=== PATIENT | female | born 1970 | race Hispanic/Latino ===

== ENCOUNTER 2018-10-12 10:03 | Inpatient (IN) | payer BC ==
[~2018-10-12] VITALS: Ht 147.3 cm; Wt 99.8 kg
[2018-10-12] MEDS ORDERED: MORPHINE SULFATE INJ 4 MG/ML INJ 1ML IV STA (10:32)
[2018-10-12] MEDS ORDERED: ONDANSETRON HCL INJ 2MG/ML 2ML 2 MG/ML VIAL IV STA (10:32)
[2018-10-12] MEDS ORDERED: SODIUM CHLORIDE 0.9% 1000ML 1,000 ML IV STA (10:32)
[2018-10-12] MEDS ORDERED: DIATRIZOATE MEGL/DIATRIZOA SOD 30 ML BTL PO ONE (10:46)
[2018-10-12 11:44] LABS: BASOPHILS # (AUTO) 0.1 (0.0-0.1); BASOPHILS % 0.3 % (0.0-1.0); EOSINOPHILS # (AUTO) 0.1 (0.0-0.4); EOSINOPHILS % 0.8 % (0.0-6.0); HEMATOCRIT 39.5 % (34.2-44.1); HEMOGLOBIN 13.6 g/dL (12.0-16.0); LYMPHOCYTES # (AUTO) 3.3 (1.0-3.2); LYMPHOCYTES % 22.4 % (18.0-39.1); MEAN CORPUSCULAR HEMOGLOBIN 29.2 pg (28-32); MEAN CORPUSCULAR HGB CONC 34.4 g/dL (31-35); MEAN CORPUSCULAR VOLUME 84.8 fL (81-99); MONOCYTES # (AUTO) 1.1 (0.2-0.8); MONOCYTES % 7.3 % (4.4-11.3); NEUTROPHILS % 68.7 % (38.7-80.0); PLATELET COUNT 334 x10e3/uL (140-360); RED BLOOD COUNT 4.66 x10e6/uL (3.6-5.1); RED CELL DISTRIBUTION WIDTH 12.5 % (11.7-14.4)
[2018-10-12 11:50] LABS: CLARITY,URINE CLEAR (CLEAR); COLOR,URINE YELLOW (YELLOW); LEUKOCYTE ESTERASE ,URINE 1+ (NEGATIVE)
[2018-10-12 11:51] LABS: BILIRUBIN,URINE 1+ (NEGATIVE); KETONES,URINE 1+ (NEGATIVE); NITRITE,URINE NEGATIVE (NEGATIVE); PROTEIN,URINE DIPSTICK 1+ (NEGATIVE); URINE UROBILINOGEN 0.2 mg/dL (0.2 - 1)
[2018-10-12 12:02] LABS: WBC,URINE (MAN) >50 /HPF (0-5)
[2018-10-12 12:03] LABS: BACTERIA,URINE MANY /HPF; EPITHELIAL CELLS,URINE MANY /LPF
[2018-10-12 12:05] LABS: ALANINE AMINOTRANSFERASE 12 IU/L (0-55); ALBUMIN 3.1 g/dL (3.5-5.0); ALBUMIN/GLOBULIN RATIO 0.7 (0.8-2.0); ALKALINE PHOSPHATASE 111 IU/L (40-150); AMYLASE 26 U/L (25-125); ANION GAP 14.6 mmol/L (8-16); BLOOD UREA NITROGEN 10 mg/dL (7-26); BUN/CREATININE RATIO 13 (6-25); CALCIUM 9.7 mg/dL (8.4-10.2); CARBON DIOXIDE 25 mmol/L (22-29); CHLORIDE 98 mmol/L (98-107); CREATININE, SERUM 0.77 mg/dL (0.57-1.11); EST GLOMERULAR FILTRATION RATE > 60 ML/MIN (60-); GLUCOSE 241 mg/dL (74-118); LIPASE 14 U/L (8-78); POTASSIUM 3.6 mmol/L (3.5-5.1); SODIUM 134 mmol/L (136-145)
[2018-10-12] MEDS ORDERED: IOPAMIDOL 370 MG/ML 200 ML INFUS..BTL INJ ONE (13:17)
[2018-10-12] MEDS ORDERED: SODIUM CHLORIDE 0.9% 50ML 50 ML ONE (13:17)
--- NOTE | 2018-10-12 13:57 | Diagnostic Imaging Report ---
EXAMINATION: CT of the abdomen and pelvis with contrast. TECHNIQUE: Helical CT images of the abdomen and pelvis were performed from the lung bases to the lesser trochanters after the intravenous administration of 100 cc of Isovue 300 and the oral administration of gastro. Coronal and sagittal reformatted images were obtained.Dose modulation, iterative reconstruction, and/or weight based adjustment of the mA/kV was utilized to reduce the radiation dose to as low as reasonably achievable. COMPARISON: None. CLINICAL HISTORY:Abdominal pain DISCUSSION: ABDOMEN/PELVIS: LOWER THORAX:Unremarkable. HEPATOBILIARY: No focal hepatic lesions. No intra-or extrahepatic biliary ductal dilation. The gallbladder is normal. SPLEEN: No splenomegaly. PANCREAS: No focal masses or ductal dilatation. ADRENALS: 1.6 cm left adrenal nodule. KIDNEYS/URETERS: 6 mm left renal calculus. PELVIC ORGANS/BLADDER: The bladder is normal. PERITONEUM/RETROPERITONEUM: No free air or fluid. LYMPH NODES: No intra-abdominal, retroperitoneal, pelvic or inguinal lymphadenopathy. VESSELS: The celiac trunk,superior and inferior mesenteric and bilateral renal arteries are patent The portal, superior mesenteric and splenic veins are patent. GI TRACT: No distention or wall thickening. Fat-containing inflammatory process in the left lower quadrant adjacent to the sigmoid colon and left adnexa axial image 65. No significant diverticulosis. BONES AND SOFT TISSUE: No bony destructive lesions. No soft tissue abnormalities. IMPRESSION: Left lower quadrant inflammatory change adjacent to the sigmoid colon likely epiploic appendagitis. Diverticulitis less likely given lack of surrounding colonic diverticula. No abscess. 6 mm left renal calculus. Signed by: Dr. Mark Jacome M.D. on 10/12/2018 1:54 PM
[2018-10-12] MEDS ORDERED: PANTOPRAZOLE 40 MG 10ML VIAL IV STA (14:27)
[2018-10-12] MEDS ORDERED: PIPER-TAZ 3.375 GM / NS 50ML IV SCH (14:30)
[2018-10-12] MEDS: PIPER-TAZ 3.375 GM 50 ML IV SCH ×2 (15:30→21:12)
[2018-10-12] MEDS: SODIUM CHLORIDE 0.9% 1000ML 1,000 ML IV SCH ×2 (15:30→23:50)
[2018-10-12] MEDS: MORPHINE SULFATE INJ 4 MG/ML INJ 1ML IV PRN ×2 (15:30→21:11)
--- OUTSIDE RECORDS SUMMARY | 2018-10-12 15:34 | XMS REPORT ---
Author [facility] Address Unknown Phone Unavailable Care Team Providers Care Injection Molding Supervisor Name Role Phone Mario KENNY Unavailable Unavailable Problems This patient has no known problems. Allergies, Adverse Reactions, Alerts This patient has no known allergies or adverse reactions. Medications This patient has no known medications. Results Test Description Test Time Test Comments Text Results Atomic Results Result Comments CT ABDOMEN/PELVIS W 2018-10-12 13:48:00 [facility] [address] [address] Patient Name: SP MEI MR #: [id number] : 1970 Age/Sex: 48/F Req #: [id number] Adm Physician: Ordered by: SHERLEY CACERES ELECTRONIC COMMUNICATIONS TECHNICIAN Report #: [id number] Location: ER Room/Bed: Procedure: [id number] CT/CT ABDOMEN/PELVIS W Exam Date: 10/12/18 Exam Time: 1238 REPORT STATUS: Signed EXAMINATION: CT of the abdomen and pelvis with cont rast. TECHNIQUE: Helical CT images of the abdomen and pelvis were performed from the lung bases to the lesser trochanters after the intravenous administration of 100 cc of Isovue 300 and the oral administration of gastro. Coronal and sagittal reformatted images were obtained.Dose modulation, iterative reconstruction, and/or weight based adjustment of the mA/kV was utilized to reduce the radiation dose to as low as reasonably achievable. COMPARISON: None. CLINICAL HISTORY:Abdominal pain DISCUSSION: ABDOMEN/PELVIS: LOWER THORAX:Unremarkable. HEPATOBILIARY: No focal hepatic lesions. No intra-or extrahepatic biliary ductal dilation. The gallbladder is normal. SPLEEN: No splenomegaly. PANCREAS: No focal masses or ductal dilatation. ADRENALS: 1.6 cm left adrenal nodule. KIDNEYS/URETERS: 6 mm left renal calculus. PELVIC ORGANS/BLADDER: The bladder is normal. PERITONEUM/RETROPERITONEUM: No free air or fluid. LYMPH NODES: No intra-abdominal, retroperitoneal, pelvic or inguinal lymphadenopathy. VESSELS: The celiac trunk,superior and inferior mesenteric and bilateral renal arteries are patent The portal, superior mesenteric and splenic veins are patent. GI TRACT: No distention or wall thickening. Fat-containing inflammatory process in the left lower quadrant adjacent to the sigmoid colon and left adnexa axial image 65. No significant diverticulosis. BONES AND SOFT TISSUE: No bony destructive lesions. No soft tissue abnormalities. IMPRESSION: Left lower quadrant inflammatory change adjacent to the sigmoid colon likely epiploic appendagitis. Diverticulitis less likely given lack of surrounding colonic diverticula. No abscess. 6 mm left renal calculus. Signed by: Dr. Rhina Ruvalcaba M.D. on 10/12/2018 1:54 PM Dictated By: RHINA RUVALCABA MD [id number] Transcribed By: ALONSO on 10/12/18 1352 COPY TO: SHERLEY CACERES NP
[2018-10-12] MEDS: METRONIDAZOLE 500MG/NS 100ML IV SCH ×4 (16:31→23:49)
[2018-10-12 17:15] VITALS: BP 128/59
--- NOTE | 2018-10-12 17:25 | NUR ---
PT REC'D FROM ED VIA WHEELCHAIR ON RA. PT C/O LEFT LOWER ABDOMINAL PAIN. NO S/S OF DISTRESS AND FLUIDS RUNNING AT 100 ML/HR. BED IN LOWEST POSITION, SIDE RAILS UP X2, AND CALL SANTIAGO WITHIN REACH.
[2018-10-12 17:34] VITALS: BP 128/59
[2018-10-12 17:46] VITALS: BP 128/59
[2018-10-12] MEDS ORDERED: PIPER-TAZ 3.375 GM 50 ML IV SCH (18:00)
--- NOTE | 2018-10-12 18:15 | NUR ---
NOTIFIED DR. CATES ABOUT PT PAIN AND LOW-GRADE FEVER OF 99.9 F. ORDERED TYLENOL FOR PAIN AND LOW-GRADE FEVER. ORDERS CARRIED OUT.
[2018-10-12] MEDS ORDERED: ACETAMINOPHEN 325 MG TAB PO PRN (18:30)
[2018-10-12] MEDS: ACETAMINOPHEN 325 MG TAB PO PRN (19:08)
[2018-10-12 20:00] VITALS: BP 96/50
[2018-10-12] MEDS: ONDANSETRON HCL INJ 2MG/ML 2ML 2 MG/ML VIAL IV PRN (21:12)
[2018-10-13] VITALS (7 sets, daily range): BP systolic 94–143; BP diastolic 50–65
[2018-10-13] MEDS: PIPER-TAZ 3.375 GM 50 ML IV SCH ×4 (03:42→21:10)
[2018-10-13] MEDS: MORPHINE SULFATE INJ 4 MG/ML INJ 1ML IV PRN ×2 (04:03→15:56)
[2018-10-13] MEDS: ACETAMINOPHEN 325 MG TAB PO PRN ×2 (04:03→17:19)
[2018-10-13] MEDS: SODIUM CHLORIDE 0.9% 1000ML 1,000 ML IV SCH ×2 (05:22→21:10)
[2018-10-13] MEDS: METRONIDAZOLE 500MG/NS 100ML IV SCH ×4 (05:22→23:29)
[2018-10-13 06:10] LABS: BASOPHILS % 0.3 % (0.0-1.0); EOSINOPHILS # (AUTO) 0.1 (0.0-0.4); EOSINOPHILS % 0.7 % (0.0-6.0); HEMATOCRIT 37.5 % (34.2-44.1); HEMOGLOBIN 12.4 g/dL (12.0-16.0); LYMPHOCYTES # (AUTO) 1.9 (1.0-3.2); LYMPHOCYTES % 13.3 % (18.0-39.1); MEAN CORPUSCULAR HGB CONC 33.1 g/dL (31-35); MEAN CORPUSCULAR VOLUME 87.6 fL (81-99); MONOCYTES # (AUTO) 1.1 (0.2-0.8); MONOCYTES % 7.5 % (4.4-11.3); NEUTROPHILS % 77.7 % (38.7-80.0); PLATELET COUNT 312 x10e3/uL (140-360); RED BLOOD COUNT 4.28 x10e6/uL (3.6-5.1); RED CELL DISTRIBUTION WIDTH 12.6 % (11.7-14.4)
[2018-10-13 06:26] LABS: ALANINE AMINOTRANSFERASE 10 IU/L (0-55); ALBUMIN 2.5 g/dL (3.5-5.0); ALBUMIN/GLOBULIN RATIO 0.6 (0.8-2.0); ALKALINE PHOSPHATASE 93 IU/L (40-150); ANION GAP 14.6 mmol/L (8-16); BLOOD UREA NITROGEN 8 mg/dL (7-26); BUN/CREATININE RATIO 12 (6-25); CALCIUM 8.8 mg/dL (8.4-10.2); CARBON DIOXIDE 20 mmol/L (22-29); CHLORIDE 104 mmol/L (98-107); CREATININE, SERUM 0.69 mg/dL (0.57-1.11); EST GLOMERULAR FILTRATION RATE > 60 ML/MIN (60-); GLUCOSE 225 mg/dL (74-118); POTASSIUM 3.6 mmol/L (3.5-5.1); SODIUM 135 mmol/L (136-145)
--- NOTE | 2018-10-13 08:33 | NUR ---
Pt received resting in bed. Alert and oriented x4. Oriented to staff and surroundings. Encouraged to press call collado if help needed. Emotional support given. All meds given as ordered. Call collado within reach. Will monitor
--- NOTE | 2018-10-13 12:48 | NUR ---
Nutrition Screen Note RD Recommendation for Physician: Advance diet as tolerated to a GI soft diet Plan of Care: RD following, monitoring for adequacy and tolerance Nutrition reason for involvement: Nutrition Risk Trigger - MST Primary Diagnose(s): Diverticulitis, UTI Ht:58 in Wt:220lbs BMI:46 kg/m2 IBW:90lbs RD Assessment:(10/13/18) Initial encounter with patient. Pt with abdominal pain. No N,V, D. 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 Denies any difficulty chewing or swallowing. No wt changes. Current Diet: Clear liquid Malnutrition Evaluation (10/13) The patient does not meet criteria for a specified degree of malnutrition at this time. Will re-evaluate at follow-up as appropriate. Diet Education Needs Assessment: Diet education not indicated. Diet Adequacy: Meeting fluid needs, Not meeting calorie needs, Not meeting protein needs Tolerance: Tolerating PO Nutrition Care Level:[address] RD, LD, [facility]
--- NOTE | 2018-10-13 13:58 | NUR ---
SOCIAL WORK INITIAL ASSESSMENT Package Collector to bedside to discuss plan of care with patient/family. CM/SW role and care transitions discussed. Anticipated discharge plan discussed along with duration of care. CM/SW discussed patients right to make decisions in care. CM/SW work hours given. 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 Name and number was also written on the patients whiteboard. Patient verbalized understanding of discussion. CM will follow-up with ongoing discharge and transition of care needs.
--- NOTE | 2018-10-13 15:42 | NUR ---
H&P cc: abdominal pain HPI: 48yoF, PCP none, developed left lower abdominal pain, nausea. No vomiting/diarrhea; found to have acute diverticulitis and UTI. PMH: morbid obesity, asthma, PreDM PShx: csec x3; ALlergies; see emr Fh/SH; ; no etoh/cigs Meds; see MAR ROS: no f/c/s/CHRISTIANSEN/cp/sob/dizziness/vision changes/skin rash/V/D v/s: revd PE tired appearing anicteric ns1s2; 3/6 systolic murmur mod bs soft nd; left lower abdomen tender to touch; no e/t skin dry n. affect labs/meds revd A/P: 48yoF Acute diverticulitis UTI Left nephrolitiasis Morbid obesity BMI 46 Hyperglycemia Systolic murmur PLAN IV abx; IVF f/u cx hab1c/lipids Lovenox/pepcid Sal Lopez MD, PhD.
[2018-10-13] MEDS: ONDANSETRON HCL INJ 2MG/ML 2ML 2 MG/ML VIAL IV PRN (15:56)
[2018-10-13 16:03] LABS: CHOL/HDL RATIO 4.8 (3.0-3.6)
[2018-10-13] MEDS ORDERED: ACETAMINOPHEN 325 MG TAB PO PRN (17:30)
[2018-10-13] MEDS ORDERED: DEXTROSE 50% SYRINGE 50 ML IV PRN (17:30)
[2018-10-13] MEDS: INSULIN REGULAR, HUMAN 100 UNIT/1 ML 3ML VIAL SQ SCH (21:11)
[2018-10-14] VITALS (8 sets, daily range): BP systolic 102–139; BP diastolic 52–60
[2018-10-14] MEDS: PIPER-TAZ 3.375 GM 50 ML IV SCH ×4 (03:59→21:31)
[2018-10-14] MEDS: METRONIDAZOLE 500MG/NS 100ML IV SCH ×4 (06:02→23:35)
[2018-10-14 06:55] LABS: BASOPHILS % 0.2 % (0.0-1.0); EOSINOPHILS # (AUTO) 0.2 (0.0-0.4); EOSINOPHILS % 1.3 % (0.0-6.0); HEMATOCRIT 37.6 % (34.2-44.1); HEMOGLOBIN 12.7 g/dL (12.0-16.0); LYMPHOCYTES # (AUTO) 2.6 (1.0-3.2); LYMPHOCYTES % 21.1 % (18.0-39.1); MEAN CORPUSCULAR HEMOGLOBIN 28.9 pg (28-32); MEAN CORPUSCULAR HGB CONC 33.8 g/dL (31-35); MEAN CORPUSCULAR VOLUME 85.5 fL (81-99); MONOCYTES # (AUTO) 0.8 (0.2-0.8); MONOCYTES % 6.7 % (4.4-11.3); NEUTROPHILS # (AUTO) 8.5 (2.1-6.9); NEUTROPHILS % 70.2 % (38.7-80.0); PLATELET COUNT 318 x10e3/uL (140-360); RED CELL DISTRIBUTION WIDTH 12.4 % (11.7-14.4)
[2018-10-14 07:08] LABS: ANION GAP 13.3 mmol/L (8-16); BLOOD UREA NITROGEN 6 mg/dL (7-26); BUN/CREATININE RATIO 9 (6-25); CALCIUM 8.7 mg/dL (8.4-10.2); CARBON DIOXIDE 21 mmol/L (22-29); CHLORIDE 107 mmol/L (98-107); CREATININE, SERUM 0.65 mg/dL (0.57-1.11); EST GLOMERULAR FILTRATION RATE > 60 ML/MIN (60-); GLUCOSE 162 mg/dL (74-118); POTASSIUM 3.3 mmol/L (3.5-5.1); SODIUM 138 mmol/L (136-145)
--- NOTE | 2018-10-14 08:35 | NUR ---
Pt received resting in bed. Alert and oriented x4. Pt educated regarding new onset Diabetes, and given hand out regarding s/s of hypoglycemia and hyperglycemia. Pt signed a copy of teaching, and placed in chart. Emotional support given. Meds given as ordered. Will monitor
[2018-10-14] MEDS: INSULIN REGULAR, HUMAN 100 UNIT/1 ML 3ML VIAL SQ SCH ×4 (08:36→21:00)
[2018-10-14] MEDS: MORPHINE SULFATE INJ 4 MG/ML INJ 1ML IV PRN ×2 (08:36→18:03)
[2018-10-14] MEDS: SODIUM CHLORIDE 0.9% 1000ML 1,000 ML IV SCH ×2 (08:36→16:24)
[2018-10-14] MEDS: PROMETHAZINE 12.5MG/ NACL 0.9% 12.5 MG/50 ML BAG IV PRN ×2 (08:36→18:03)
--- NOTE | 2018-10-14 18:25 | NUR ---
IM- progress note O/N no events ROS: no f/c/s/CHRISTIANSEN/cp/sob/dizziness/vision changes/skin rash/V/D v/s: revd PE tired appearing anicteric ns1s2; 3/6 systolic murmur mod bs soft nd; left lower abdomen tender to touch; no e/t skin dry n. affect labs/meds revd A/P: 48yoF Acute diverticulitis UTI Left nephrolitiasis Morbid obesity BMI 46 Hyperglycemia Systolic murmur PLAN IV abx; IVF f/u cx hab1c/lipids Lovenox/pepcid needs urine culture; cont abx; replaceK; check labs in am Sal Lopez MD, PhD.
[2018-10-14] MEDS ORDERED: POTASSIUM CHLORIDE 20MEQ/100ML 100 ML IV ONE (18:30)
[2018-10-14] MEDS ORDERED: MORPHINE SULFATE INJ 4 MG/ML INJ 1ML IV PRN (19:15)
[2018-10-14] MEDS ORDERED: POTASSIUM CHLORIDE 10MEQ EA PO ONE (21:00)
[2018-10-15] VITALS (7 sets, daily range): BP systolic 112–142; BP diastolic 57–75
[2018-10-15] MEDS: SODIUM CHLORIDE 0.9% 1000ML 1,000 ML IV SCH ×3 (00:17→22:27)
[2018-10-15] MEDS: PIPER-TAZ 3.375 GM 50 ML IV SCH ×4 (03:17→22:00)
[2018-10-15] MEDS: METRONIDAZOLE 500MG/NS 100ML IV SCH ×3 (05:11→17:12)
[2018-10-15 06:47] LABS: BASOPHILS % 0.2 % (0.0-1.0); EOSINOPHILS # (AUTO) 0.1 (0.0-0.4); EOSINOPHILS % 0.9 % (0.0-6.0); HEMATOCRIT 36.4 % (34.2-44.1); HEMOGLOBIN 12.3 g/dL (12.0-16.0); LYMPHOCYTES % 23.6 % (18.0-39.1); MEAN CORPUSCULAR HEMOGLOBIN 29.1 pg (28-32); MEAN CORPUSCULAR HGB CONC 33.8 g/dL (31-35); MEAN CORPUSCULAR VOLUME 86.1 fL (81-99); MONOCYTES # (AUTO) 0.9 (0.2-0.8); MONOCYTES % 7.3 % (4.4-11.3); NEUTROPHILS # (AUTO) 8.6 (2.1-6.9); NEUTROPHILS % 67.5 % (38.7-80.0); PLATELET COUNT 356 x10e3/uL (140-360); RED BLOOD COUNT 4.23 x10e6/uL (3.6-5.1); RED CELL DISTRIBUTION WIDTH 12.6 % (11.7-14.4)
[2018-10-15 07:06] LABS: ANION GAP 14.5 mmol/L (8-16); BLOOD UREA NITROGEN 6 mg/dL (7-26); BUN/CREATININE RATIO 10 (6-25); CALCIUM 8.6 mg/dL (8.4-10.2); CARBON DIOXIDE 20 mmol/L (22-29); CHLORIDE 107 mmol/L (98-107); CREATININE, SERUM 0.62 mg/dL (0.57-1.11); EST GLOMERULAR FILTRATION RATE > 60 ML/MIN (60-); GLUCOSE 118 mg/dL (74-118); POTASSIUM 3.5 mmol/L (3.5-5.1); SODIUM 138 mmol/L (136-145)
--- NOTE | 2018-10-15 07:20 | NUR ---
PATIENT IS AWAKE, ALERT, AND IN STABLE CONDITION WITH NO S/S OF RESPIRATORY DISTRESS. NO PAIN VOICED. IV FLUIDS INFUSING. PRESENT IN ROOM. CALL LIGHT IS WITHIN REACH, PATIENT INSTRUCTED TO CALL FOR ASSISTANCE NEEDED.
[2018-10-15] MEDS: INSULIN REGULAR, HUMAN 100 UNIT/1 ML 3ML VIAL SQ SCH ×4 (07:30→21:00)
--- NOTE | 2018-10-15 10:14 | NUR ---
IM- progress note O/N no events ROS: no f/c/s/CHRISTIANSEN/cp/sob/dizziness/vision changes/skin rash/V/D v/s: revd PE tired appearing anicteric ns1s2; 3/6 systolic murmur mod bs soft nd; left lower abdomen tender to touch; no e/t skin dry n. affect labs/meds revd A/P: 48yoF Acute diverticulitis UTI Left nephrolitiasis Morbid obesity BMI 46 Hyperglycemia Systolic murmur PLAN IV abx; IVF f/u cx hab1c/lipids Lovenox/pepcid needs urine culture; cont abx; replaceK; check labs in am 10/15 advance to full liq diet; labs in am. Sal Lopez MD, PhD.
--- NOTE | 2018-10-15 16:37 | NUR ---
Nutrition Screen Note RD Recommendation for Physician: - ADAT to goal of 1800 benedicto carb control, GI Soft diet - Diet education provided 10/15 Plan of Care: RD following, monitoring for adequacy and tolerance Nutrition reason for involvement: MD consult- diet education Primary Diagnose(s): Diverticulitis, UTI Ht:58 in Wt:220lbs BMI:46 kg/m2 IBW:90lbs RD Assessment: 10/15: Pt seen today for new onset DM diet education. Pt educated on DM2 nutrition therapy emphasizing CHO sources, CHO counting, food label reading, meal planning, foods to avoid, consistent intake, and cooking tips. All questions answered at time of visit, diet education handouts provided. Pt reports tolerating CL diet currently. Labs and meds reviewed. Will monitor and continue to follow. Initial encounter with patient. Pt with abdominal pain. No N,V, D. 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 Denies any difficulty chewing or swallowing. No wt changes. Current Diet: Clear liquid Malnutrition Evaluation (10/13) The patient does not meet criteria for a specified degree of malnutrition at this time. Will re-evaluate at follow-up as appropriate. Diet Education Needs Assessment: Diet education indicated- new onset DM, pt receptive to diet education 10/15. Learner(s): pt Barriers: none Cultural/Language Modifications: none Readiness: ready Method: handouts, discussion Topics: DM2 nutrition therapy, CHO counting, label reading Understanding/Compliance: Diet Adequacy: Not meeting calorie needs, not meeting protein needs Tolerance: Tolerating PO Nutrition Care Level:Low Signed: Bárbara Tijerina RD, LD, [facility]
--- NOTE | 2018-10-15 19:29 | NUR ---
PATIENT IS IN STABLE CONDITION WITH NO S/S OF RESPIRATORY DISTRESS. NO PAIN VOICED. IV FLUIDS INFUSING. CALL LIGHT IS WITHIN REACH, PATIENT INSTRUCTED TO CALL FOR ASSISTANCE NEEDED. BEDSIDE REPORT GIVEN TO ONCOMING NURSE.
--- NOTE | 2018-10-15 19:57 | NUR ---
RECEIVED PT IN BED AOX3 RESPIRATIONS ARE EVEN AND UNLABORED DENIES ABD PAIN NOW .CALL LIGHT WITH IN REACH .CONTINUE TO MONITOR
[2018-10-16] VITALS: BP 124/58
[2018-10-16 02:34] VITALS: BP 124/58
[2018-10-16 04:00] VITALS: BP 120/63
[2018-10-16] MEDS: PIPER-TAZ 3.375 GM 50 ML IV SCH ×2 (04:00→09:03)
[2018-10-16] MEDS: METRONIDAZOLE 500MG/NS 100ML IV SCH ×3 (06:00→12:00)
--- NOTE | 2018-10-16 06:23 | NUR ---
PT RESTED DURING THE NIGHT DENIES PAIN CALL LIGHT WITH IN REACH .CONTINUE TO MONITOR
[2018-10-16 06:57] LABS: BASOPHILS % 0.3 % (0.0-1.0); EOSINOPHILS # (AUTO) 0.1 (0.0-0.4); EOSINOPHILS % 1.4 % (0.0-6.0); HEMATOCRIT 38.5 % (34.2-44.1); HEMOGLOBIN 12.7 g/dL (12.0-16.0); LYMPHOCYTES # (AUTO) 2.4 (1.0-3.2); LYMPHOCYTES % 24.5 % (18.0-39.1); MEAN CORPUSCULAR HEMOGLOBIN 28.5 pg (28-32); MEAN CORPUSCULAR VOLUME 86.5 fL (81-99); MONOCYTES # (AUTO) 0.7 (0.2-0.8); MONOCYTES % 7.2 % (4.4-11.3); NEUTROPHILS # (AUTO) 6.4 (2.1-6.9); NEUTROPHILS % 66.2 % (38.7-80.0); PLATELET COUNT 353 x10e3/uL (140-360); RED BLOOD COUNT 4.45 x10e6/uL (3.6-5.1); RED CELL DISTRIBUTION WIDTH 12.6 % (11.7-14.4)
--- NOTE | 2018-10-16 07:10 | NUR ---
PATIENT IS ALERT AND IN STABLE CONDITION WITH NO S/S OF RESPIRATORY DISTRESS. NO PAIN VOICED. IV FLUIDS INFUSING. CALL LIGHT IS WITHIN REACH, PATIENT INSTRUCTED TO CALL FOR ASSISTANCE NEEDED.
--- NOTE | 2018-10-16 07:11 | NUR ---
REPORT GIVEN TO THE ONCOMING NURSE
[2018-10-16 07:16] LABS: ANION GAP 12.3 mmol/L (8-16); CALCIUM 8.4 mg/dL (8.4-10.2); CARBON DIOXIDE 22 mmol/L (22-29); CHLORIDE 106 mmol/L (98-107); EST GLOMERULAR FILTRATION RATE > 60 ML/MIN (60-); GLUCOSE 134 mg/dL (74-118); POTASSIUM 3.3 mmol/L (3.5-5.1); SODIUM 137 mmol/L (136-145)
[2018-10-16] MEDS: INSULIN REGULAR, HUMAN 100 UNIT/1 ML 3ML VIAL SQ SCH ×2 (07:30→11:30)
[2018-10-16] MEDS ORDERED: LEVAQUIN500 MG PO (07:49)
[2018-10-16] MEDS ORDERED: ZOFRAN4 MG PO (07:49)
[2018-10-16] MEDS ORDERED: FLAGYL500 MG PO (07:49)
[2018-10-16 08:00] VITALS: BP 142/67
[2018-10-16] MEDS ORDERED: POTASSIUM CHLORIDE 20 MEQ TAB CR PO NR (08:15)
[2018-10-16 08:24] LABS: BLOOD UREA NITROGEN 5 mg/dL (7-26); BUN/CREATININE RATIO 8 (6-25)
[2018-10-16] MEDS ORDERED: ONDANSETRON HCL 4 MG ORAL DISINTEGRATING TAB PO PRN (09:15)
[2018-10-16 11:45] VITALS: BP 143/72
--- NOTE | 2018-10-16 14:31 | NUR ---
PATIENT DISCHARGE HOME- PATIENT OFF THE UNIT AT 1410 PER WHEELCHAIR ACCOMPANIED BY STAFF MEMBER TO THE FRONT LOBBY. PATIENT IN STABLE CONDITION WITH NO S/S OF RESPIRATORY DISTRESS. NO PAIN VOICED. IV REMOVED WITH TIP INTACT AT 1220. DISCHARGE TEACHING, INSTRUCTIONS, AND MEDICATIONS GIVEN TO THE PATIENT. ALL PERSONAL ITEMS TAKEN WITH THE PATIENT.
== END 2018-10-16 14:32 | disposition home or self-care (01) | DRG 392 ==
LOC: ER 10:03 → ERHOLD 15:28 → MED/SURG3 17:14
PROVIDERS: ADMIT Internal Medicine; ATTEND Internal Medicine
DX: K57.90 Diverticulosis of intestine, part unspecified, without perforation or abscess without bleeding (principal); Z68.42 Body mass index [BMI] 45.0-49.9, adult; N39.0 Urinary tract infection, site not specified; E66.01 Morbid (severe) obesity due to excess calories; R01.1 Cardiac murmur, unspecified; R21 Rash and other nonspecific skin eruption; N20.0 Calculus of kidney; J45.909 Unspecified asthma, uncomplicated; R73.03 Prediabetes
CPT/HCPCS: 36415; 74177; 80048; 80053; 80061; 81001; 81025; 82150; 82270; 82948; 83036; 83690; 85025; 87086; 96361; 99284; J2270; J2405; J2543; J2550; J7030; Q9967

== ENCOUNTER 2019-09-25 16:27 | Inpatient (IN) | payer BC ==
[~2019-09-25] VITALS: Ht 144.8 cm; Wt 93.0 kg
[2019-09-25 09:15] VITALS: BP 128/68
[~2019-09-25 16:27] MED LIST: FLAGYL500 MG PO; LEVAQUIN500 MG PO; ZOFRAN4 MG PO
--- OUTSIDE RECORDS SUMMARY | 2019-09-25 16:29 | XMS REPORT | Summary of Care ---
Author Author [facility] Organization [facility] Address Unknown Phone Unavailable Care Team Providers Care Doctor Podiatric Medicine Name Role Phone Jm Gonzalez MD PCP Unavailable Reason for Referral * Treatment (Routine) Referred By Contact Referred To Contact Status Reason Specialty Diagnoses / Procedures Zoey Can MD [address] [address] Rupal Perez MD [address] [address] Ref Initiated Gastroenterology Diagnoses Screen for colon cancer Rectal bleed Z12.11 (ICD-10-CM) - Screen for colon cancer K62.5 (ICD-10-CM) - Rectal bleed P rocedures COLONOSCOPY W MAC GI DEPT MD COLONOSCOPY W/BIOPSY SINGLE/MULTIPLE Reason for Visit * Reason Comments Initial Visit Rectal Bleeding Colon Cancer Screening * Consult, Test & Treat (Routine) Referred By Contact Referred To Contact Status Reason Specialty Diagnoses / Procedures Jm Gonzalez MD [facility] [address], [address] [place] [address] Authorized Gastroenterology Diagnoses Diverticulitis P rocedures MD OFFICE OUTPATIENT NEW 30 MINUTES MD OFFICE CONSULTATION NEW/ESTAB PATIENT 60 MIN Encounter Details Care Team Description Date Type Department Zoey Can MD [address] [facility] [address] [place] [address] Initial Visit; Rectal Bleeding; Colon Cancer Screening 02/28/2019 Office Visit [facility] Gastroenterology [address], [address] [place] [address] Allergies No Known Allergiesdocumented as of this encounter (statuses as of 03/18/2019) Medications End Date Status Medication Sig Dispensed Refills Start Date Active metformin (GLUCOPHAGE) Take 1,000 mg 0 1000 MG tablet by mouth 2 times daily (with meals). Active atorvastatin (LIPITOR) 40 Take 40 mg by 0 MG tablet mouth daily. Active glipiZIDE (GLUCOTROL) 2.5 Take 2.5 mg 0 MG CR tablet by mouth daily. Active Na Sulfate-K Sulfate-Mg [SUPREP] Take 1 Bottle 0 Sulf (SUPREP BOWEL PREP as directed. 9 KIT) 17.5-3.13-1.6 GM/177ML SOLNIndications: Screen for colon cancer, Rectal bleed documented as of this encounter (statuses as of 03/18/2019) Active Problems Not on filedocumented as of this encounter (statuses as of 03/18/2019) Social History Date Tobacco Use Types Packs/Day Years Used Never Smoker Smokeless Tobacco: Never Used Drinks/Week oz/Week Comments Alcohol Use Never Alcohol Habits Answer Date Recorded How often do you have a drink containing alcohol? Never 02/28/2019 How many drinks containing alcohol do you have on Not asked a typical day when you are drinking? How often do you have six or more drinks on one Not asked occasion? Sex Assigned at Date Recorded Not on file Industry Job Start Date Occupation Not on file Not on file Not on file Travel End Travel History Travel Start No recent travel history available. documented as of this encounter Last Filed Vital Signs Reading Time Taken Comments Vital Sign 120/70 02/28/2019 11:36 AM CDT Blood Pressure 68 02/28/2019 11:36 AM CDT Pulse 36.9 C (98.5 F) 02/28/2019 11:36 AM CDT Temperature 16 02/28/2019 11:36 AM CDT Respiratory Rate - - Oxygen Saturation - - Inhaled Oxygen Concentration 99.3 kg (219 lb) 02/28/2019 11:36 AM CDT Weight 144.8 cm (4' 9") 02/28/2019 11:36 AM CDT Height 47.39 02/28/2019 11:36 AM CDT Body Mass Index documented in this encounter Progress Notes * Zoey Can MD - 02/28/2019 11:30 AM CDT Dear Ms. Adames, It was a pleasure to care for you recently. Your white blood cell counts, red blood cell counts, and platelet counts are normal. Your iron levels are mildly low: I recommend that you take a daily over the counter iron vitamin, and try to eat plenty of iron-rich foods such as dark leafy greens, raisins, dark chocolat e, meat, liver, beans, etc. Please do not hesitate to contact us with any quest ions or concerns. Thanks! Best, Yahir Can MD * Zoey Can MD - 02/28/2019 11:30 AM CDT [facility] Gastroenterology Date of Service: 02/28/2019 Chief complaint: Rectal bleeding Diverticulitis Colon cancer screening Referred by: Jm Gonzalez MD HPI: Leatha Adames is a 48 y.o. female with morbid obesity (BMI 47.4), asthma, DM2, who presents for evaluation of rectal bleeding, acute diverticulitis, and colon cancer screening. She did not undergo regular medical care for years. 2-3 months ago, felt acutely ill with abdominal pain, went to ER and hospitalized for diverticulitis at [facility], received IV antibiotics, and found out she was diabetic on that admission. Initial BG 360s at diagnosis. Now working on glycemic control with Josemanuel DE SANTIAGO. One month ago, had blood dripping in stool "like a menstrual cycle" - no associa bart abdominal nor rectal/anal pain. Had had a few years off/on of blood in stool prior to this episode. Stools are soft, formed, brown, no straining, no chronic constipation. Has had anemia since her 20s, even hospitalized for a few weeks in her 20s, had colonoscopy with "bleeding ulcers" at that time. Denies heavy menstrual periods for most of her adult life: previously took OCPs to control irregular periods. H owever in the past 1 year, menses have become irregular and heavy with passage o f clots; undergoing evaluation with asset availability leader. No prior colonoscopy No change in bowel habits No family history of colon cancer +visible blood in stool as above No unintentional weight loss ROS: General: Negative for fever, chills, weight loss, weight gain Gastrointestinal: Negative for nausea, vomiting, heartburn, +abdominal pain, maday rrhea, constipation, bloating, gas, dysphagia, odynophagia, melena, hematemesis, +hematochezia, jaundice Cardio: Negative for chest pain, palpitation, exertional dyspnea, orthopnea, dipak ma Skin: Negative for rash, ulceration, itching, nodule Neuro: Negative numbness, migraine, weakness, impaired gait, syncope, double vis ion, seizures HEENT: Negative for sore throat, jaundice Resp: Negative for cough, pleurisy, hemoptysis, sputum, wheezing : Negative for frequency, burning, pneumaturia, hematuria Hematology: Negative for anemia, bruising, coagulopathy Metabolic: Negative for heat intolerance, cold intolerance, polyuria Bones and Joints: Negative for stiffness, pain, swelling Psych: Negative for anxiety, depression, psychosis All others negative PMH: Morbid obesity (BMI 47.4) Diabetes mellitus Asthma History of anemia dating back to her 20s with finding of "ulcers" in colon(?) PSH: Past Surgical History: Procedure Laterality Date HX COLONOSCOPY 3 C-sections MEDS: Current Outpatient Medications: atorvastatin (LIPITOR) 40 MG tablet, Take 40 mg by mouth daily., Disp: , Rf l: glipiZIDE (GLUCOTROL) 2.5 MG CR tablet, Take 2.5 mg by mouth daily., Disp: , Rfl: metformin (GLUCOPHAGE) 1000 MG tablet, Take 1,000 mg by mouth 2 times daily (with meals)., Disp: , Rfl: FH: No GI malignancy. 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 PHYSICAL EXAM: VITALS: Vitals: 02/28/19 1136 BP: 120/70 BP Location: right arm Patient Position: Sitting Cuff Size: regular Pulse: 68 Resp: 16 Temp: 98.5 F (36.9 C) TempSrc: Oral Weight: 219 lb (99.3 kg) Height: 4' 9" (1.448 m) Body mass index is 47.39 kg/m. Constitutional: no distress, awake/alert/oriented x4 HEENT: PERRL, EOMI, moist mucous membranes, oropharynx clear, anicteric Neck: supple, no LAD CV: RRR, normal S1/S2, no murmur/rub/gallop Resp: CTAB, no wheezes/rales Abd: soft, nontender, nondistended, normoactive bowel sounds, no organomegaly Ext: warm, well perfused, no clubbing, no edema Neuro: grossly intact Skin: dry, intact LABS: No results found for: WBC, HGB, HCT, MCV No results found for: NA, K, CL, CO2, BUN, CREATININE Immunizations: There is no immunization history on file for this patient. IMAGING: Reviewed ASSESSMENT: Leatha Adames is a 48 y.o. female with the following problems: 1) Acute uncomplicated diverticulitis in summer 2018 2) Rectal outlet bleeding on/off for several years 3) DM2 4) Morbid obesity (BMI 47.4) 5) History of anemia, with recent menorrhagia in past 1 year 6) Due for colorectal cancer screening RECOMMEND: 1) Laboratory testing to include CBC and iron studies to characterize anemia 2) High fiber diet 3) Colonoscopy with MAC to evaluate rectal bleeding, follow up diverticulitis an d exclude underlying other/alternate structural pathology, and average risk age appropriate colon cancer screening (schedule at [facility] to accommodate BMI) 4) Counseled on slow/steady weight loss with minimizing carbohydrates, increasin g physical activity, reducing portion sizes The patient's intake sheet was reviewed today with patient. Information pertain ing to past medical history, family medical history, social history, allergies, and medications was reviewed. The intake sheets are by protocol scanned into the system after the clinic visit. Medical records from referring physician reviewed with patient. The findings, plan, and recommendations have been discussed in detail with the p atient who expresses understanding and is comfortable with the plan. In case of new symptoms, worsening of symptoms, or any other questions or concer ns, please call the clinic for an earlier appointment and or go to the ER. I discussed in detail with patient the options of endoscopic evaluation for his/ her symptoms including colonoscopy. Risks (including but not limited to pain, pe rforation, bleeding, infection, splenic injury, missed lesions), benefits, and a lternatives of the procedure have been discussed in detail with the patient, who expresses understanding. RTC: After colonoscopy Signed: Zoey Can MD Labor Crew Supervisor Department of Medicine Section of Gastroenterology documented in this encounter Plan of Treatment Care Team Description Date Type Specialty Rupal Perez MD [address] [address] 03/29/2019 Appointment Gastroenterology Order Schedule Name Type Priority Associated Diagnoses 1 Occurrences starting 02/28/2019 until 08/31/2019 COLONOSCOPY W MAC GI Procedures Routine Screen for colon cancer DEPT Rectal bleed Health Maintenance Due Date Last Done Comments COLON CANCER SCREENIN1968 COLONOSCOPY MAMMOGRAM ANNUAL 1968 TETANUS SHOT (ADULT) 1983 BMI FOLLOW UP PLAN 1986 HIV SCREENING 1986 CERVICAL CANCER SCREENING 1989 3 YEAR FOLLOW UP FLU VACCINE > 6 MONTHS Completed 02/27/2019, 03/12/2016, 03/25/2011 documented as of this encounter Procedures Comments Procedure Name Priority Date/Time Associated Diagnosis IRON+TIBC+%SAT Routine 02/28/2019 Anemia due to other 12:21 PM CDT cause, not classified CBC W/AUTO DIFF WITH Routine 02/28/2019 Anemia due to other PLATELETS 12:21 PM CDT cause, not classified FERRITIN Routine 02/28/2019 Anemia due to other 12:21 PM CDT cause, not classified documented in this encounter Results * FERRITIN (02/28/2019 12:21 PM CDT) FERRITIN 52 13 - 200 NG/ML CPL Comment: Unless Otherwise Indicated, All Testing Performed At: [facility], [address] [place] [address] Furniture Dipper: Jono Swartz M.D. CLIA Number [id number]. [id number] Specimen Blood Performing Organization Address City/State/Zipcode Phone Number [address] [address] * IRON+TIBC+%SAT (02/28/2019 12:21 PM CDT) Pathologist [facility] IRON 59 37 - 145 UG/DL CPL UIBC 256 112 - 347 UG/DL CPL TIBC 315 250 - 450 UG/DL CPL IRON SATURATION 19 (L) 20 - 50 % CPL % Comment: Unless Otherwise Indicated, All Testing Performed At: [facility], [address] [place] [address] Furniture Dipper: Jono Swartz M.D. CLIA Number [id number] [place]. [id number] Specimen Blood Performing Organization Address [facility]/Zipcode Phone Number [facility] [address] [place] [phone] * CBC W/AUTO DIFF WITH PLATELETS (02/28/2019 12:21 PM CDT) Pathologist [facility] WHITE BLOOD 10.6 4.0 - 11.0 K/UL CPL CELL COUNT RED BLOOD CELL 4.79 3.80 - 5.10 M/UL CPL COUNT HEMOGLOBIN 14.1 11.5 - 15.5 G/DL CPL HEMATOCRIT 41.3 34.0 - 45.0 % CPL MEAN 86.2 80.0 - 100.0 fL CPL CORPUSCULAR VOLUME MEAN 29.4 27.0 - 34.0 PG CPL CORPUSCULAR HEMOGLOBIN MEAN 34.1 32.0 - 35.5 G/DL CPL CORPUSCULAR HEMOGLOBIN CONC RED CELL 12.5 11.0 - 15.0 % CPL DISTRIBUTION WIDTH NEUTROPHILS % 51.6 40.0 - 74.0 % CPL LYMPHOCYTES % 38.6 19.0 - 48.0 % CPL MONOCYTES % 6.4 4.0 - 13.0 % CPL EOSINOPHILS % 2.8 0.0 - 7.0 % CPL BASOPHILS % 0.6 0.0 - 2.0 % CPL PLATELET COUNT 335 130 - 400 K/UL CPL Comment: Unless Otherwise Indicated, All Testing Performed At: [facility], [address] [place] [address] Furniture Dipper: Jono Swartz M.D. CLIA Number [id number] [place]. [id number] Specimen Blood Performing Organization Address [facility]/Zipcode Phone Number [address] [address] documented in this encounter Visit Diagnoses Diagnosis Anemia due to other cause, not classified - Primary Screen for colon cancer Special screening for malignant neoplasms, colon Rectal bleed Hemorrhage of rectum and anus documented in this encounter Insurance Type Payer Benefit Subscriber ID Effective Phone Address Plan / Dates Group POS [employer] [id number] xxxxxxxxxxxx 2018- [address] [place] Present [id number] [place], [place] POS - BCBS [id number] PPO [facility] PPO/EPO - xxxxxxxxxxxx 2018-[address] BCBS / [id number] [place] [address] documented as of this encounter
[2019-09-25] MEDS ORDERED: MORPHINE SULFATE INJ 4 MG/ML INJ 1ML IV STA ×2 (16:36→19:33)
[2019-09-25] MEDS ORDERED: SODIUM CHLORIDE 0.9% 1000ML 1,000 ML IV STA (16:36)
[2019-09-25] MEDS ORDERED: ONDANSETRON HCL INJ 2MG/ML 2ML 2 MG/ML VIAL IV STA (16:36)
[2019-09-25 17:13] LABS: BASOPHILS % 0.3 % (0.0-1.0); EOSINOPHILS # (AUTO) 0.2 (0.0-0.4); EOSINOPHILS % 1.4 % (0.0-6.0); HEMOGLOBIN 13.4 g/dL (12.0-16.0); LYMPHOCYTES # (AUTO) 2.7 (1.0-3.2); LYMPHOCYTES % 21.1 % (18.0-39.1); MEAN CORPUSCULAR HEMOGLOBIN 28.6 pg (28-32); MEAN CORPUSCULAR HGB CONC 33.5 g/dL (31-35); MEAN CORPUSCULAR VOLUME 85.5 fL (81-99); MONOCYTES # (AUTO) 0.8 (0.2-0.8); MONOCYTES % 6.6 % (4.4-11.3); NEUTROPHILS # (AUTO) 8.9 (2.1-6.9); NEUTROPHILS % 70.1 % (38.7-80.0); PLATELET COUNT 491 x10e3/uL (140-360); RED BLOOD COUNT 4.68 x10e6/uL (3.6-5.1); RED CELL DISTRIBUTION WIDTH 12.2 % (11.7-14.4)
[2019-09-25 17:21] LABS: CLARITY,URINE CLOUDY (CLEAR); COLOR,URINE ORANGE (YELLOW); KETONES,URINE 3+ (NEGATIVE); LEUKOCYTE ESTERASE ,URINE TRACE (NEGATIVE); NITRITE,URINE POSITIVE (NEGATIVE); PROTEIN,URINE DIPSTICK 2+ (NEGATIVE)
[2019-09-25 17:22] LABS: BILIRUBIN,URINE SMALL (NEGATIVE); URINE UROBILINOGEN 0.2 mg/dL (0.2 - 1)
[2019-09-25 17:32] LABS: BACTERIA,URINE MANY /HPF; EPITHELIAL CELLS,URINE MODERATE /LPF; RBC,URINE >50 /HPF (0-5); WBC,URINE (MAN) >50 /HPF (0-5)
[2019-09-25 18:05] LABS: ALANINE AMINOTRANSFERASE 7 IU/L (0-55); ALBUMIN/GLOBULIN RATIO 0.6 (0.8-2.0); ALKALINE PHOSPHATASE 105 IU/L (40-150); ANION GAP 14.6 mmol/L (8-16); BLOOD UREA NITROGEN 9 mg/dL (7-26); BUN/CREATININE RATIO 12 (6-25); CALCIUM 9.3 mg/dL (8.4-10.2); CARBON DIOXIDE 23 mmol/L (22-29); CHLORIDE 99 mmol/L (98-107); CREATININE, SERUM 0.76 mg/dL (0.57-1.11); EST GLOMERULAR FILTRATION RATE > 60 ML/MIN (60-); GLUCOSE 313 mg/dL (74-118); POTASSIUM 3.6 mmol/L (3.5-5.1); SODIUM 133 mmol/L (136-145)
[2019-09-25] MEDS ORDERED: CEFTRIAXONE SOD 1 GM VIAL IV ONE (18:15)
[2019-09-25] MEDS ORDERED: CEFTRIAXONE SOD 1 GM/NS 50 ML 50 ML IV ONE (18:30)
--- NOTE | 2019-09-25 19:21 | Diagnostic Imaging Report ---
EXAM: CT Abdomen and Pelvis WITHOUT contrast INDICATION: ^STONE PROTOCOL ^[id number] ^1750 ^Y COMPARISON: CT abdomen and pelvis 10/12/2018 TECHNIQUE: Abdomen and pelvis were scanned utilizing a multidetector helical scanner from the lung base to the pubic symphysis without administration of IV contrast. Absence of intravenous contrast decreases sensitivity for detection of focal lesions and vascular pathology. Coronal and sagittal reformations were obtained. Routine protocol was performed. IV CONTRAST: None. ORAL CONTRAST: Water RADIATION DOSE: Total DLP: 797.2 mGy*cm Estimated effective dose: (DLP x 0.015 x size factor) mSv COMPLICATIONS: None FINDINGS: LINES and TUBES: None. LOWER THORAX: Unremarkable HEPATOBILIARY: No focal hepatic lesions. No biliary ductal dilation. GALLBLADDER: No radio-opaque stones or sludge. No wall thickening. SPLEEN: No splenomegaly. PANCREAS: No focal masses or ductal dilatation. ADRENALS: No adrenal nodules KIDNEYS/URETERS: No hydronephrosis. 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 Unchanged 6 mm nonobstructing calcified stone in the inferior pole of the left kidney on series 3, image 65. GI TRACT: No abnormal distention, wall thickening, or evidence of bowel obstruction. Worsening inflammatory changes surrounding the sigmoid colon in the left lower quadrant on series 3, image 121 with a punctate air foci suggestive of acute diverticulitis. No drainable fluid collections or abscess. Appendix is normal. PELVIC ORGANS/BLADDER: Unremarkable. LYMPH NODES: No lymphadenopathy. VESSELS: Mild atherosclerotic calcifications of the abdominal aorta. PERITONEUM / RETROPERITONEUM: No free air or fluid. BONES: Unremarkable. SOFT TISSUES: Unremarkable. IMPRESSION: 1. Acute diverticulitis of the sigmoid colon. No drainable fluid collections or abscess. 2. Stable nonobstructing left nephrolithiasis. Signed by: Dr. Debbie Alvarenga M.D. on 09/25/2019 7:18 PM
[2019-09-25] MEDS ORDERED: MORPHINE SULFATE 2 MG/ML SYR 1ML IV PRN (19:30)
[2019-09-25] MEDS ORDERED: ONDANSETRON HCL INJ 2MG/ML 2ML 2 MG/ML VIAL IV PRN (19:30)
[2019-09-25] MEDS ORDERED: MORPHINE SULFATE INJ 4 MG/ML INJ 1ML IV PRN ×2 (19:45→23:45)
[2019-09-25] MEDS: PIPER-TAZ 3.375 GM 50 ML IV SCH (21:03)
[2019-09-25 21:15] VITALS: BP 128/68
[2019-09-25] MEDS ORDERED: DICYCLOMINE HCL 10 MG CAP PO PRN (21:15)
[2019-09-25] MEDS ORDERED: ACETAMINOPHEN 325 MG TAB PO PRN (21:15)
[2019-09-25] MEDS ORDERED: HYDRALAZINE HCL 20 MG/ML VIAL IV PRN (21:15)
[2019-09-25 21:30] VITALS: BP 128/62
[2019-09-25] MEDS: METRONIDAZOLE 500MG/NS 100ML 100 ML IV SCH (21:52)
[2019-09-25] MEDS: MORPHINE SULFATE 2 MG/ML SYR 1ML IV PRN (21:52)
[2019-09-25] MEDS: SODIUM CHLORIDE 0.9% 1000ML 1,000 ML IV SCH (21:52)
[2019-09-25] MEDS ORDERED: TYLENOL WITH C1 EACH PO (23:39)
[2019-09-25] MEDS ORDERED: ATORVASTATIN CA20 MG PO (23:39)
[2019-09-25] MEDS ORDERED: METFORMIN HCL500 MG PO (23:39)
[2019-09-25] MEDS ORDERED: GLIPIZIDE5 MG PO (23:39)
[2019-09-25] MEDS ORDERED: FLOMAX0.4 MG PO (23:39)
[2019-09-26] VITALS (9 sets, daily range): BP systolic 99–119; BP diastolic 50–74
[2019-09-26] MEDS: PIPER-TAZ 3.375 GM 50 ML IV SCH ×4 (01:59→21:47)
[2019-09-26] MEDS: METRONIDAZOLE 500MG/NS 100ML 100 ML IV SCH ×4 (02:58→21:47)
[2019-09-26] MEDS: SODIUM CHLORIDE 0.9% 1000ML 1,000 ML IV SCH ×2 (04:11→19:30)
[2019-09-26 06:12] LABS: BASOPHILS % 0.2 % (0.0-1.0); EOSINOPHILS # (AUTO) 0.2 (0.0-0.4); EOSINOPHILS % 1.5 % (0.0-6.0); HEMATOCRIT 38.2 % (34.2-44.1); HEMOGLOBIN 12.5 g/dL (12.0-16.0); LYMPHOCYTES # (AUTO) 2.2 (1.0-3.2); LYMPHOCYTES % 17.2 % (18.0-39.1); MEAN CORPUSCULAR HEMOGLOBIN 28.5 pg (28-32); MEAN CORPUSCULAR HGB CONC 32.7 g/dL (31-35); MONOCYTES # (AUTO) 1.1 (0.2-0.8); MONOCYTES % 8.8 % (4.4-11.3); NEUTROPHILS # (AUTO) 9.3 (2.1-6.9); NEUTROPHILS % 71.9 % (38.7-80.0); PLATELET COUNT 418 x10e3/uL (140-360); RED BLOOD COUNT 4.39 x10e6/uL (3.6-5.1)
[2019-09-26 06:23] LABS: ALANINE AMINOTRANSFERASE 7 IU/L (0-55); ALBUMIN 2.6 g/dL (3.5-5.0); ALBUMIN/GLOBULIN RATIO 0.6 (0.8-2.0); ALKALINE PHOSPHATASE 94 IU/L (40-150); ANION GAP 12.8 mmol/L (8-16); BLOOD UREA NITROGEN 8 mg/dL (7-26); BUN/CREATININE RATIO 11 (6-25); CALCIUM 8.9 mg/dL (8.4-10.2); CARBON DIOXIDE 23 mmol/L (22-29); CHLORIDE 105 mmol/L (98-107); CREATININE, SERUM 0.71 mg/dL (0.57-1.11); EST GLOMERULAR FILTRATION RATE > 60 ML/MIN (60-); GLUCOSE 274 mg/dL (74-118); POTASSIUM 3.8 mmol/L (3.5-5.1); SODIUM 137 mmol/L (136-145)
--- NOTE | 2019-09-26 07:20 | NUR ---
PATIENT AMBULATED TO THE RESTROOM AND BACK TO CHAIR, NO COMPLAIN VOICED. IV FLUID INFUSING ORDERED. BED IN LOWER POSITION, CALL LIGHT AT REACH.
[2019-09-26] MEDS: FAMOTIDINE 20 MG TAB PO SCH ×2 (07:30→16:30)
--- NOTE | 2019-09-26 10:55 | NUR ---
Pt. expressed no spiritual or emotional concerns at this time. Cushion Filler provided hospitality and information on how to reach animal nutrition teacher, if needed. No need to follow at this time. TIERA CARR Cushion Filler Spiritual Care Department O: [phone]
--- NOTE | 2019-09-26 11:19 | NUR ---
PATIENT OUT OF BED TO CHAIR WATCHING TV, NO COMPLAIN VOICED. CALL LIGHT AT REACH.
[2019-09-26] MEDS ORDERED: DEXTROSE 50% SYRINGE 50 ML IV PRN (12:15)
--- NOTE | 2019-09-26 15:30 | NUR ---
PATIENT ASSISTED WITH SHOWER. IN BED TALKING ON THE PHONE. CALL LIGHT AT REACH.
[2019-09-26] MEDS: INSULIN LISPRO 100 UNIT/1 ML 3ML VIAL SQ SCH ×3 (16:30→21:00)
[2019-09-26] MEDS ORDERED: INSULIN LISPRO 100 UNIT/1 ML 3ML VIAL SQ SCH ×2 (16:30)
[2019-09-26] MEDS: ACETAMINOPHEN/CODEINE 300MG - 30MG TAB PO PRN (17:20)
--- NOTE | 2019-09-26 17:32 | Consultation ---
DATE OF CONSULTATION: 09/26/2019 Endocrine Consultation This is a patient of Dr. Steele. Thank you very much for referring this patient. HISTORY OF PRESENT ILLNESS: This is a 49-year-old lady, who was referred to me for evaluation of uncontrolled diabetes mellitus. The patient is a known diabetic for almost a year and she takes glipizide 2.5 mg once daily at home and has been noncompliant about taking the medication. She came to the hospital with history of severe abdominal pain. She was found to have diverticulitis. The patient had an episode of diverticulitis about a year back also. She has very strong family history of diabetes mellitus. The patient is a nonsmoker. She is also hypertensive. During the hospital stay, the patient has been on IV fluids and antibiotics. Her blood sugars have been fluctuating quite significantly in the ranges of 250 to 350 range. She also has history of chronic asthma and migraine headaches. PHYSICAL EXAMINATION: GENERAL: Today, the patient is alert, awake, little bit apprehensive. She is moderately overweight. VITAL SIGNS: Her heart rate is around 78 and blood pressure 130/80 mmHg. HEENT: Essentially unremarkable. Thyroid is palpable. Clinically, she is near euthyroid. CHEST: Bilateral vesicular breathing. She has mild bronchospasm. CARDIAC: First and second heart sounds. There is no 3rd or 4th heart sound. Ejection systolic murmur grade 2/6. GI: The patient has distended abdomen with marked tenderness. LABORATORY DATA: Her hemoglobin A1c is 14.3. CLINICAL IMPRESSION: 1. Diabetes mellitus type 2, uncontrolled with complications. 2. Hypertension. 3. Diverticulitis. 4. Chronic asthma. PLAN: At this time is to monitor her blood sugars closely and adjust insulin dose. Advance the diet slowly. The patient needs extensive diabetic and dietary education. Thank you again for referring this patient. I will follow this patient along with you. MD SARAH Hickey/OTILIO /[id number]
[2019-09-26] MEDS ORDERED: INSULIN GLARGINE 100 UNITS/ML VIAL SQ SCH (21:00)
[2019-09-26] MEDS: MORPHINE SULFATE 2 MG/ML SYR 1ML IV PRN (22:45)
[2019-09-27] VITALS (7 sets, daily range): BP systolic 92–114; BP diastolic 54–61
[2019-09-27] MEDS: PIPER-TAZ 3.375 GM 50 ML IV SCH ×4 (02:16→21:45)
[2019-09-27] MEDS: METRONIDAZOLE 500MG/NS 100ML 100 ML IV SCH ×4 (03:05→21:10)
[2019-09-27] MEDS: SODIUM CHLORIDE 0.9% 1000ML 1,000 ML IV SCH ×2 (03:30→07:28)
[2019-09-27 06:18] LABS: BASOPHILS % 0.4 % (0.0-1.0); EOSINOPHILS # (AUTO) 0.1 (0.0-0.4); EOSINOPHILS % 1.2 % (0.0-6.0); HEMATOCRIT 35.1 % (34.2-44.1); HEMOGLOBIN 11.4 g/dL (12.0-16.0); LYMPHOCYTES # (AUTO) 2.4 (1.0-3.2); LYMPHOCYTES % 21.4 % (18.0-39.1); MEAN CORPUSCULAR HEMOGLOBIN 28.3 pg (28-32); MEAN CORPUSCULAR HGB CONC 32.5 g/dL (31-35); MEAN CORPUSCULAR VOLUME 87.1 fL (81-99); MONOCYTES % 9.2 % (4.4-11.3); NEUTROPHILS # (AUTO) 7.6 (2.1-6.9); NEUTROPHILS % 67.4 % (38.7-80.0); PLATELET COUNT 402 x10e3/uL (140-360); RED BLOOD COUNT 4.03 x10e6/uL (3.6-5.1); RED CELL DISTRIBUTION WIDTH 12.1 % (11.7-14.4)
[2019-09-27] MEDS: ACETAMINOPHEN/CODEINE 300MG - 30MG TAB PO PRN (06:42)
[2019-09-27 06:46] LABS: BLOOD UREA NITROGEN 5 mg/dL (7-26); BUN/CREATININE RATIO 9 (6-25); CALCIUM 8.3 mg/dL (8.4-10.2); CARBON DIOXIDE 24 mmol/L (22-29); CHLORIDE 108 mmol/L (98-107); CREATININE, SERUM 0.58 mg/dL (0.57-1.11); EST GLOMERULAR FILTRATION RATE > 60 ML/MIN (60-); GLUCOSE 96 mg/dL (74-118); SODIUM 140 mmol/L (136-145)
--- NOTE | 2019-09-27 07:00 | NUR ---
bedside shift report received pt in stable condition, denies pain at this time, updated on poc voiced understanding,ivf infusing to l fa 20g no ss of infiltration noted, no other co voiced call light in reach will continue to monitor
[2019-09-27] MEDS: FAMOTIDINE 20 MG TAB PO SCH ×2 (07:30→17:15)
[2019-09-27] MEDS: INSULIN LISPRO 100 UNIT/1 ML 3ML VIAL SQ SCH ×7 (07:30→21:00)
[2019-09-27] MEDS ORDERED: POTASSIUM CHLORIDE 20 MEQ TAB CR PO NR (10:45)
--- NOTE | 2019-09-27 18:07 | Diagnostic Imaging Report ---
EXAM: Abdomen 2 Views INDICATION: ^VISUALIZE STONE IN PREP FOR ESWL AND COMPARE TO CT ^[id number] ^1700 COMPARISON: CT abdomen and pelvis 10/12/2018 and FINDINGS: Lines/tubes: None. Mild amount of stool in the colon. Paucity of bowel in the in the left abdomen consistent with this patient acute diverticulitis. No bowel obstruction. Stable 6 mm stone in the inferior left kidney. No abnormal soft tissue masses. Mild degenerative changes in the lumbar spine and pelvis. IMPRESSION: 1. Stable left nephrolithiasis. 2. Paucity of the bowel with gas in the left abdomen consistent with this patient's acute diverticulitis. Signed by: Dr. Debbie Alvarenga M.D. on 09/27/2019 6:04 PM
--- NOTE | 2019-09-27 19:40 | Consultation ---
DATE OF CONSULTATION: 09/27/2019 Urology Consultation REASON FOR CONSULTATION: Urolithiasis. HISTORY OF PRESENT ILLNESS: Leatha Adames is a 49-year-old woman with a previous urological history of having a kidney stone 18 years ago when she was . It seemed to her that the stone may have passed and she has never had any issues until three weeks ago when she had left-sided abdominal pain and was told she had a kidney stone and her pains may be related to her stone. The patient subsequently was admitted with diverticulitis and urological consultation was sought due to the finding of 6 mm stone. The patient also has urinary tract infections and is now on culture specific antibiotics. The patient denies urinary incontinence except during this illness when she developed some urge type urinary incontinence. She denies any stress type urinary incontinence. Denies ever having urological surgery. PAST MEDICAL AND SURGICAL HISTORY: 1. 3, para 3 all by section. 2. Status post bilateral tubal ligation. 3. Diabetes mellitus. 4. Asthma. 5. Migraines. 6. Anemia. 7. Hyperlipidemia. FAMILY HISTORY: Noncontributory to the active urological problems. SOCIAL HISTORY: The patient denies smoking or ethanol drug use. 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 REVIEW OF SYSTEMS: Discussed as above in history of present illness, past medical history, otherwise negative for all systems. CURRENT MEDICATIONS: Please refer to the MAR. ALLERGIES: NONE KNOWN. PHYSICAL EXAMINATION: GENERAL: Very pleasant woman lying in bed, in no apparent distress. She is currently afebrile. VITAL SIGNS: Currently stable. ABDOMEN: Soft, nondistended. It is tender to the left of the umbilicus. There is no costovertebral angle tenderness. The patient is obese. For the remaining physical examination systems, please refer to the admission history and physical on the chart and the ERT sheet. 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 The patient also has a 6 mm stone in the lower pole of the left kidney. There is acute diverticulitis of the sigmoid colon without any drainable fluid collections. Urine culture reveals an E coli that is pansensitive except for resistance to Cipro and Levaquin. White blood cell count is 11,190, hemoglobin 11.4, platelets 402,000. The patient's potassium is low at 3, creatinine is normal at 0.58. Her calcium is low at 8.3. ASSESSMENT: 1. Left nephrolithiasis. 2. Abdominal pain is not related to the urinary tract. 3. Urinary tract infection. 4. Mild urge incontinence. 5. 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 6. Leukocytosis. 7. Anemia. 8. Hypokalemia. 9. Hypocalcemia. 10. Obesity. PLAN: 1. I defer to the hematological and electrolyte abnormalities to the primary team. 2. Continue antibiotics. 3. We will order KUB to visualize stone. 4. The patient will need extracorporeal shockwave lithotripsy and cystoscopy and retrograde electively. 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 Thank you very much for involving us in the care of your patient. We will be happy to follow her along with you as well as an outpatient. MD EMELY Cross/OTILIO /[id number]
[2019-09-27] MEDS ORDERED: INSULIN GLARGINE 100 UNITS/ML VIAL SQ SCH (21:00)
[2019-09-28] VITALS: BP 95/50
[2019-09-28] MEDS: ACETAMINOPHEN/CODEINE 300MG - 30MG TAB PO PRN
[2019-09-28] MEDS: PIPER-TAZ 3.375 GM 50 ML IV SCH ×4 (03:23→13:25)
[2019-09-28] MEDS: METRONIDAZOLE 500MG/NS 100ML 100 ML IV SCH ×3 (03:23→14:36)
[2019-09-28] MEDS: SODIUM CHLORIDE 0.9% 1000ML 1,000 ML IV SCH ×4 (03:30→11:30)
[2019-09-28 04:00] VITALS: BP 115/56
[2019-09-28 06:41] LABS: BASOPHILS % 0.3 % (0.0-1.0); EOSINOPHILS # (AUTO) 0.2 (0.0-0.4); EOSINOPHILS % 2.3 % (0.0-6.0); HEMATOCRIT 34.8 % (34.2-44.1); HEMOGLOBIN 11.4 g/dL (12.0-16.0); LYMPHOCYTES # (AUTO) 2.7 (1.0-3.2); LYMPHOCYTES % 25.7 % (18.0-39.1); MEAN CORPUSCULAR HEMOGLOBIN 28.7 pg (28-32); MEAN CORPUSCULAR HGB CONC 32.8 g/dL (31-35); MEAN CORPUSCULAR VOLUME 87.7 fL (81-99); MONOCYTES # (AUTO) 0.9 (0.2-0.8); MONOCYTES % 8.8 % (4.4-11.3); NEUTROPHILS # (AUTO) 6.6 (2.1-6.9); NEUTROPHILS % 62.5 % (38.7-80.0); PLATELET COUNT 389 x10e3/uL (140-360); RED BLOOD COUNT 3.97 x10e6/uL (3.6-5.1); RED CELL DISTRIBUTION WIDTH 12.3 % (11.7-14.4)
--- NOTE | 2019-09-28 06:54 | NUR ---
Patient endorsed to next shift for continuity of care.
--- NOTE | 2019-09-28 07:00 | NUR ---
BEDSIDE SHIFT REPORT RECEIVED FROM THE DERMATOLOGY NURSE RN. BED IS LOW AND LOCKED. SIDE RAILS X2. CALL LIGHT WITH IN EASY REACH. INSTRUCTED PT TO USE CALL LIGHT FOR ALL THE NEEDS. EDUCATED PT ABOUT FALL PRECAUTIONS. PT VERBALIZED UNDERSTANDING. PT DENIES NEEDS AT THIS TIME.
[2019-09-28 07:01] LABS: ANION GAP 10.5 mmol/L (8-16); BLOOD UREA NITROGEN < 5 mg/dL (7-26); CALCIUM 8.2 mg/dL (8.4-10.2); CARBON DIOXIDE 26 mmol/L (22-29); CHLORIDE 110 mmol/L (98-107); CREATININE, SERUM 0.63 mg/dL (0.57-1.11); EST GLOMERULAR FILTRATION RATE > 60 ML/MIN (60-); GLUCOSE 104 mg/dL (74-118); POTASSIUM 3.5 mmol/L (3.5-5.1); SODIUM 143 mmol/L (136-145)
[2019-09-28 07:11] LABS: BUN/CREATININE RATIO 8 (6-25)
[2019-09-28] MEDS: INSULIN LISPRO 100 UNIT/1 ML 3ML VIAL SQ SCH ×6 (07:30→17:30)
[2019-09-28 08:03] VITALS: BP 117/57
[2019-09-28 08:06] VITALS: BP 117/57
[2019-09-28] MEDS: FAMOTIDINE 20 MG TAB PO SCH ×2 (08:30→16:03)
[2019-09-28 11:59] VITALS: BP 119/55
[2019-09-28] MEDS ORDERED: CEFDINIR300 MG PO (13:15)
[2019-09-28] MEDS ORDERED: TYLENOL WITH C1 EACH PO (13:15)
[2019-09-28] MEDS ORDERED: FLAGYL500 MG PO (13:15)
[2019-09-28] MEDS ORDERED: DICYCLOMINE HCL10 MG PO (13:15)
[2019-09-28] MEDS ORDERED: ONDANSETRON HCL 4 MG ORAL DISINTEGRATING TAB PO PRN (14:00)
--- NOTE | 2019-09-28 15:00 | NUR ---
PAGED DR. SANTANA REGARDING PT D/C.
--- NOTE | 2019-09-28 15:20 | NUR ---
JALEN TO D/C PT PER DR. COLLINS AND DR. COUGHLIN.
[2019-09-28 16:34] VITALS: BP 122/62
[2019-09-28] MEDS ORDERED: LANTUS 3ML100 UNITS/ (17:02)
[2019-09-28] MEDS ORDERED: HUMALOG KW200 UNIT/1 (17:02)
--- NOTE | 2019-09-28 17:20 | NUR ---
DR. SANTANA AT BEDSIDE. OKAY TO D/C PT PER DR. SANTANA AND RENUKA ALBERT.
--- NOTE | 2019-09-28 17:55 | NUR ---
PT DISCHARGED HOME SAFELY WITH FAMILY MEMBER.IV REMOVED. TIP INTACT. DRESSING APPLIED. D/C INSTRUCTIONS GIVEN. PT VERBALIZED UNDERSTANDING. PT ESCORTED BY THE TECH VIA WHEEL CHAIR TO THE PRIVATE AUTO AT THE FRONT ENTRANCE. PT DENIED FURTHER NEEDS.
[2019-09-28] MEDS ORDERED: INSULIN GLARGINE 100 UNITS/ML VIAL SQ SCH (21:00)
--- NOTE | 2019-10-01 06:43 | Discharge Summary ---
ADMISSION DIAGNOSES: Acute diverticulitis of the sigmoid colon; urinary tract infection, present on admission; type 2 diabetes; nephrolithiasis; morbid obesity with a BMI of 44.4. DISCHARGE DIAGNOSES: Acute diverticulitis of the sigmoid colon; urinary tract infection, present on admission; type 2 diabetes; nephrolithiasis; morbid obesity with a BMI of 44.4; Escherichia coli urinary tract infection, present on admission. HISTORY: Type 2 diabetes, hyperlipidemia, asthma, migraines. SURGICAL HISTORY: x3. FAMILY HISTORY: The patient's uncle and cousin had diabetes. The patient's paternal cousin, maternal aunt, maternal grandfather, and paternal aunts and uncles had cancer. SOCIAL HISTORY: Noncontributory. HOSPITAL COURSE: A 49-year-old female admits with complaints of intermittent sharp, cramping left lower quadrant abdominal pain that began 3 weeks ago. She denies diarrhea, nausea, vomiting, dysuria, hematuria, sick contacts, and travel. Three weeks earlier, the patient went to an urgent care and was told she had a kidney stone. She was following up with a urologist outpatient. On admission, CT of the abdomen and pelvis showed acute diverticulitis of the sigmoid colon. No drainable fluid collections or abscess. A stable nonobstructing left nephrolithiasis. The patient had a followup KUB, which showed stable left nephrolithiasis. Urine culture came back positive for E coli. The antibiotics the patient was getting for diverticulitis included Flagyl and Zosyn, which also cover the urine. The patient's A1c came back at 14.3, so Endocrinology was consulted. After a few days, the patient is tolerating diet and the pain is well controlled. She will discharge home with remaining doses of Omnicef and Flagyl as well as Bentyl p.r.n. She will stop taking her diabetes med p.o. and was given prescriptions for insulin per Endocrinology. She will follow up with primary care in 1 to 2 weeks. She will follow up with Dr. Paul for elective lithotripsy and Dr. Rollins for colonoscopy. The patient understands instructions and agrees to plan. Vital signs stable, the patient afebrile. Dictated by Melisa Goff NP MD [facility]CO ANTONIO Rodriguez/MODL /[id number]
== END 2019-09-28 17:55 | disposition home or self-care (01) | DRG 392 ==
LOC: ER 16:27 → ERHOLD 19:33 → MED/SURG3 21:25
PROVIDERS: ADMIT Internal Medicine; ATTEND Internal Medicine
DX: K57.32 Diverticulitis of large intestine without perforation or abscess without bleeding (principal); N39.0 Urinary tract infection, site not specified; Z68.41 Body mass index [BMI] 40.0-44.9, adult; E11.65 Type 2 diabetes mellitus with hyperglycemia; J45.909 Unspecified asthma, uncomplicated; E78.5 Hyperlipidemia, unspecified; N20.0 Calculus of kidney; E83.51 Hypocalcemia; E66.01 Morbid (severe) obesity due to excess calories; N39.41 Urge incontinence; D17.71 Benign lipomatous neoplasm of kidney; D72.829 Elevated white blood cell count, unspecified; E87.6 Hypokalemia; D64.9 Anemia, unspecified; Z79.84 Long term (current) use of oral hypoglycemic drugs; Z91.14 Patient's other noncompliance with medication regimen; Z87.442 Personal history of urinary calculi; Z83.3 Family history of diabetes mellitus; Z80.9 Family history of malignant neoplasm, unspecified; Z79.4 Long term (current) use of insulin; B96.20 Unspecified Escherichia coli [E. coli] as the cause of diseases classified elsewhere
CPT/HCPCS: 36415; 74018; 74176; 80048; 80053; 81001; 82948; 83036; 83690; 84439; 84443; 85025; 87086; 87186; 96361; 99284; J0696; J2270; J2405; J2543; J7030

== ENCOUNTER 2021-07-02 13:13 | Emergency (ER) | payer BC ==
[~2021-07-02] VITALS: Ht 144.8 cm; Wt 93.0 kg
[~2021-07-02 13:13] MED LIST changes: +ATORVASTATIN CA20 MG PO; +CEFDINIR300 MG PO; +DICYCLOMINE HCL10 MG PO; +FLOMAX0.4 MG PO; +GLIPIZIDE5 MG PO; +HUMALOG KW200 UNIT/1; +LANTUS 3ML100 UNITS/; +METFORMIN HCL500 MG PO; +TYLENOL WITH C1 EACH PO
[2021-07-02] MEDS ORDERED: KETOROLAC TROMETHAMINE 30 MG/ML VIAL IV STA (13:23)
[2021-07-02] MEDS ORDERED: ONDANSETRON HCL INJ 2MG/ML 2ML 2 MG/ML VIAL IV STA (13:23)
[2021-07-02] MEDS ORDERED: SODIUM CHLORIDE 0.9% 1000ML 1,000 ML IV SCH (13:30)
[2021-07-02 13:41] LABS: BASOPHILS # (AUTO) 0.1 (0.0-0.1); BASOPHILS % 0.3 % (0.0-1.0); EOSINOPHILS # (AUTO) 0.1 (0.0-0.4); EOSINOPHILS % 0.6 % (0.0-6.0); HEMATOCRIT 40.5 % (34.2-44.1); HEMOGLOBIN 12.9 g/dL (12.0-16.0); LYMPHOCYTES # (AUTO) 2.3 (1.0-3.2); LYMPHOCYTES % 12.1 % (18.0-39.1); MEAN CORPUSCULAR HEMOGLOBIN 28.7 pg (28-32); MEAN CORPUSCULAR HGB CONC 31.9 g/dL (31-35); MEAN CORPUSCULAR VOLUME 90.2 fL (81-99); MONOCYTES % 5.4 % (4.4-11.3); NEUTROPHILS # (AUTO) 15.6 (2.1-6.9); PLATELET COUNT 517 x10e3/uL (140-360); RED BLOOD COUNT 4.49 x10e6/uL (3.6-5.1); RED CELL DISTRIBUTION WIDTH 11.5 % (11.7-14.4)
[2021-07-02] MEDS ORDERED: DIATRIZOATE MEGL/DIATRIZOA SOD 30 ML BTL PO ONE (13:54)
[2021-07-02 14:00] LABS: ALBUMIN 2.6 g/dL (3.5-5.0); ALBUMIN/GLOBULIN RATIO 0.5 (0.8-2.0); ANION GAP 13.6 mmol/L (8-16); CALCIUM 9.8 mg/dL (8.4-10.2); CREATININE, SERUM 0.68 mg/dL (0.57-1.11); POTASSIUM 3.6 mmol/L (3.5-5.1)
[2021-07-02 14:22] LABS: CLARITY,URINE SL CLOUDY (CLEAR); LEUKOCYTE ESTERASE ,URINE NEGATIVE (NEGATIVE); NITRITE,URINE NEGATIVE (NEGATIVE); PROTEIN,URINE DIPSTICK 1+ (NEGATIVE)
[2021-07-02 14:23] LABS: COLOR,URINE STRAW (YELLOW); KETONES,URINE 2+ (NEGATIVE); URINE UROBILINOGEN 0.2 mg/dL (0.2 - 1)
[2021-07-02 14:32] LABS: BACTERIA,URINE MANY /HPF; EPITHELIAL CELLS,URINE MODERATE /LPF
[2021-07-02] MEDS ORDERED: IOPAMIDOL 370 MG/ML 200 ML INFUS..BTL INJ ONE (14:36)
[2021-07-02] MEDS ORDERED: SODIUM CHLORIDE 0.9% 50ML 50 ML ONE (14:36)
[2021-07-02] MEDS ORDERED: PIPERACILLIN/TAZOBACTAM 3.375 GM VIAL ONE (15:00)
[2021-07-02] MEDS ORDERED: Morphine 4mg Syringe 4 MG/ML INJ IV ONE (15:30)
[2021-07-02] MEDS ORDERED: PIPERACILLIN/TAZOBACTAM 3.375 GM in SODIUM CHLORIDE 0.9% 50ML 50 ML IV ONE (15:30)
[2021-07-02] MEDS ORDERED: Doxycycline IV 100 ML IV SCH (17:00)
[2021-07-02] MEDS ORDERED: Cefoxitin 2 G in SODIUM CHLORIDE 0.9% 100 ML IV SCH (18:00)
[2021-07-02] MEDS ORDERED: ACETAMINOPHEN 325 MG TAB ONE (20:52)
[2021-07-02] MEDS ORDERED: FENTANYL CITRATE/PF 100MCG/2 ML INJ ONE (20:55)
[2021-07-02] MEDS ORDERED: FENTANYL CITRATE/PF 100MCG/2 ML INJ IV ONE (21:00)
[2021-07-02] MEDS ORDERED: ACETAMINOPHEN 325 MG TAB PO ONE (21:00)
== END 2021-07-02 20:53 | disposition other institution (70) ==
LOC: ER 13:29
DX: N70.93 Salpingitis and oophoritis, unspecified (principal); R10.32 Left lower quadrant pain; E11.65 Type 2 diabetes mellitus with hyperglycemia; E78.5 Hyperlipidemia, unspecified; J45.909 Unspecified asthma, uncomplicated; Z20.822 Contact with and (suspected) exposure to COVID-19; Z87.19 Personal history of other diseases of the digestive system
CPT/HCPCS: 36415; 74177; 76830; 76856; 80053; 81001; 83605; 83690; 85025; 87040; 87210; 87491; 87591; 99284; J0694; J1885; J2270; J2405; J2543; J3010; J7030; J7050; Q9967; U0002

== ENCOUNTER 2021-08-14 22:56 | Emergency (ER) | payer BC ==
[~2021-08-14] VITALS: Ht 144.8 cm; Wt 93.0 kg
[2021-08-14] MEDS ORDERED: HYDROCODONE/APAP 10MG-325MG TAB PO ONE (23:00)
[2021-08-14] MEDS ORDERED: HYDROCODONE/APAP 10MG-325MG TAB ONE (23:13)
[2021-08-14] MEDS ORDERED: HYDROCODON-ACE1 EAC9 PO (23:54)
== END 2021-08-14 23:56 | disposition home or self-care (01) ==
LOC: ER 23:00
DX: S82.832A Other fracture of upper and lower end of left fibula, initial encounter for closed fracture (principal); X50.1XXA Overexertion from prolonged static or awkward postures, initial encounter; Y92.008 Other place in unspecified non-institutional (private) residence as the place of occurrence of the external cause; E11.9 Type 2 diabetes mellitus without complications; E78.5 Hyperlipidemia, unspecified; J45.909 Unspecified asthma, uncomplicated; Z87.442 Personal history of urinary calculi
CPT/HCPCS: 99283